=== PATIENT | female | born 1990 | race Caucasian/White ===

== ENCOUNTER → 2021-07-03 10:25 | Outpatient (CLI) | payer OTHER, MEDICAID, SELFPAY ==
--- NOTE | 2021-07-03 10:27 | DI.US.S_ITS ---
PROCEDURE: US OB <= 14 WEEKS FETUS INDICATIONS: DATING ULTRASOUND. HISTORY OF ECTOPIC - RULE OUT ECTOPIC. OUTSIDE/PRIOR DATING DATA: Last menstrual period (LMP): May 13, 2021 LMP-based estimated date of delivery (XIAO): February 17, 2022 First dating scan (date and location): July 03, 2021 Estimated date of delivery (XIAO) from first dating scan: February 19, 2022 TECHNIQUE: Real-time scanning was performed of the fetus and maternal pelvic organs, with image documentation. Endovaginal scanning was also performed to better visualize the fetus and maternal ovaries. COMPARISON: None. FINDINGS: Embryo: Single living intrauterine identified. Yolk sac and pole are identified. [place]-rump length measures 1.0 centimeters corresponding to ultrasound estimated gestational age of 7 weeks 0 days. Heart rate: 135 beats per minute Measurement variability in dating: +/- 4 weeks by LMP, +/- 7 days by mean sac diameter (use before 6 weeks gestation if crown-rump length not able to be measured), +/- 5 days by crown-rump length (up to 8 weeks 6 days gestation), +/- 7 days by crown-rump length (up to 13 weeks 6 days gestation). Maternal organs: 2.7 x 2.6 x 2.2 centimeter left corpus luteal cyst. Right adnexa is sonographically normal.. IMPRESSION: Single living intrauterine with ultrasound estimated gestational age of 7 weeks 0 days corresponding to ultrasound XIAO of February 19, 2022. Dictated by: Beulah Espinoza MD, PhD on 07/03/2021 at 14:32 Approved by: Beulah Espinoza MD, PhD on 07/03/2021 at 14:34
[2021-07-03 12:47] LABS: HCG Quantitative /Beta subunit 42375 mIU/mL
== END ==
PROVIDERS: PCP Nurse Practitioner; Referring Provider Obstetrics & Gynecology; Visit Provider Obstetrics & Gynecology
DX: Z36.87 Encounter for antenatal screening for uncertain dates (principal); O34.81 Maternal care for other abnormalities of pelvic organs, first trimester; N83.12 Corpus luteum cyst of left ovary; Z3A.01 Less than 8 weeks gestation of pregnancy
CPT/HCPCS: 36415; 76801; 76817; 84702

== ENCOUNTER → 2021-08-21 12:53 | Outpatient (CLI) | payer OTHER, MEDICAID, SELFPAY | PROVIDERS: PCP Nurse Practitioner; Referring Provider Obstetrics & Gynecology; Visit Provider Obstetrics & Gynecology | DX: Z34.91 Encounter for supervision of normal pregnancy, unspecified, first trimester (principal); Z36.0 Encounter for antenatal screening for chromosomal anomalies | CPT/HCPCS: 36415 ==

== ENCOUNTER → 2021-09-19 14:43 | Outpatient (CLI) | payer OTHER, MEDICAID, SELFPAY ==
[2021-09-19 18:55] LABS: Appearance Urine UA CLEAR; Bilirubin Urine UA NEGATIVE (NEGATIVE); Color Urine UA YELLOW; Glucose Urine UA TRACE g/dL (Negative); Ketones Urine UA NEGATIVE (NEGATIVE); Leukocyte Esterase Urine UA NEGATIVE (NEGATIVE); Nitrite Urine UA NEGATIVE (Negative); Occult Blood Urine UA NEGATIVE (Negative); Protein Urine UA NEGATIVE (Negative); Specific Gravity Urine UA 1.015 (1.000-1.035); Urobilinogen Urine UA 0.2 E.U./dL (0.2)
== END ==
PROVIDERS: PCP Nurse Practitioner; Visit Provider Obstetrics & Gynecology
DX: Z34.81 Encounter for supervision of other normal pregnancy, first trimester (principal)
CPT/HCPCS: 81003; 87086

== ENCOUNTER → 2021-09-19 15:03 | Outpatient (CLI) | payer OTHER, MEDICAID, SELFPAY ==
[2021-09-19 15:37] LABS: Add Manual Diff / Slide Review NO; Basophils Absolute Auto 100 /uL (0-100); Basophils Percent Auto 0.9 % (0-2); Eosinophils Absolute Auto 100 /uL (0-450); Eosinophils Percent Auto 1.1 % (2-4); Hematocrit 33.4 % (36-46); Lymphocytes Absolute Auto 1600 /uL (1100-4500); Lymphocytes Percent Auto 26.6 % (25-40); Mean Corpuscular Hemoglobin 26.9 PG (26-34); Mean Corpuscular Volume 81.4 fL (80-100); Monocytes Absolute Auto 500 /uL (0-900); Monocytes Percent Auto 7.6 % (3-14); Neutrophils Absolute Auto 3900 /uL (1500-7000); Neutrophils Percent Auto 63.8 % (50-75); Platelet Count 254 X10^3/uL (150-400); Red Cell Distribution Width 16.2 % (11.6-14.8); White Blood Cell Count 6.2 X10^3/uL (4.5-11.0)
[2021-09-20 05:04] LABS: RPR Screen Non Reactive (Non Reactive)
[2021-09-20 17:40] LABS: Varicella IgG Antibody 163 index (Immune >165)
[2021-09-20 19:44] LABS: Hepatitis B Surface Antigen NEGATIVE s/c (NEGATIVE); Rubella Antibody IgG 10.4 IU/mL (>15)
[2021-09-20 20:00] LABS: HIV 1 & 2 Ab/Ag 4th Gen Combo NEGATIVE (NEGATIVE); Hep C Virus Ab w/Reflex Quant NEGATIVE s/c (NEGATIVE)
[2021-09-21 18:35] LABS: Gest Age on Col Date 18.4 weeks (.); Gestational Age Ultrasound (.); Insulin Dep Diabetes No (.); OSBR Risk 1IN 10000 (.); Results Report (.); Test Results *Screen Negative* (.)
== END ==
PROVIDERS: PCP Nurse Practitioner; Referring Provider Obstetrics & Gynecology; Visit Provider Obstetrics & Gynecology
DX: O09.12 Supervision of pregnancy with history of ectopic pregnancy, second trimester (principal); Z36.0 Encounter for antenatal screening for chromosomal anomalies; Z3A.18 18 weeks gestation of pregnancy
CPT/HCPCS: 36415; 80055; 81003; 81420; 82105; 86787; 86803; 86850; 86900; 86901; 87086; 87389

== ENCOUNTER → 2021-10-02 12:02 | Outpatient (CLI) | payer OTHER, MEDICAID, SELFPAY ==
--- NOTE | 2021-10-02 12:04 | DI.US.S_ITS ---
PROCEDURE: US OB >= 14 WEEKS FETUS INDICATIONS: ANATOMY OUTSIDE/PRIOR DATING DATA: Last menstrual period (LMP): 05/13/2021. LMP-based estimated date of delivery (XIAO): 02/17/2022 . First dating scan (date and location): 07/03/2021 . Estimated date of delivery (XIAO) from first dating scan: 02/19/2022 . TECHNIQUE: Real-time scanning was performed of the fetus, with image documentation and biometric measurements. Endovaginal scanning: No COMPARISON: [facility], OB <= 14 WEEKS FETUS, 07/03/2021, 10:37. FINDINGS: General: A single living intrauterine gestation is present. Presentation: Variable. Placenta: Placental position is posterior , without previa. Amniotic fluid index: 8.6 cm, normal range is 5-24 cm. heart rate: 153 beats per minute. Maternal cervical canal: 5.5 cm long. Normal lower limit is 2.5 cm. biometrics: Biparietal diameter: 19 weeks 3 days Head circumference: 19 weeks 6 days Abdominal circumference: 20 weeks 1 day Femur length: 19 weeks 4 days Estimated gestational age from initial scan: 20 weeks Composite gestational age from present scan: 19 weeks 5 days Estimated weight and percentile: 318 g; 38th percentile. Measurement variability for biometric dating: +/- 7 days from 14 weeks to 15 weeks 6 days gestation, +/- 10 days from 16 weeks to 21 weeks 6 days gestation, +/- 2 weeks from 22 weeks to 27 weeks 6 days gestation, +/- 3 weeks for 28 weeks gestation or later. weight reference: 4500 g or EFW >90/95% is considered macrosomia or large for gestational age. EFW <10% is small for gestational age. EFW 5% or less is considered intra-uterine growth restriction. Anatomic survey: Neuro: Ventricles are non-dilated at less than 10 mm. Cisterna magna is normal at 3-11 mm. Cerebellum is normal in size and morphology. Nuchal skin fold: Normal at less than 6 mm between 14-21 weeks gestational age. Face: Nose and lips, facial profile are normal. Spine: No evidence for spina bifida. Heart: 4-chambered heart is present, with normal ventricular outflow tracts. Diaphragm: Diaphragm is intact. Stomach: Left-sided stomach is present. Kidneys: No hydronephrosis. Normal is less than 5 mm in 2nd trimester, less than 7 mm in 3rd trimester. Cord: 3-vessel cord has orthotopic insertion. Marginal placental cord insertion site roughly 17 mm from the placental margin. Bladder: Normal in size. Extremities: All 4 extremities identified. IMPRESSION: 1. Normal interval growth. 2. spine not well visualized; otherwise normal anatomic survey. 3 . Marginal cord insertion site. Attention on follow-up recommended. Dictated by: Ryan HO Interpreted: Dio Burgess MD on 10/02/2021 at 14:41 Transcribed by: ANTONIA on 10/02/2021 at 14:43 Approved by: Dio Burgess M.D. on 10/02/2021 at 18:07
== END ==
PROVIDERS: PCP Nurse Practitioner; Referring Provider Obstetrics & Gynecology; Visit Provider Obstetrics & Gynecology
DX: Z34.82 Encounter for supervision of other normal pregnancy, second trimester (principal); Z3A.19 19 weeks gestation of pregnancy
CPT/HCPCS: 76811

== ENCOUNTER → 2021-11-19 14:51 | Outpatient (CLI) | payer OTHER, MEDICAID, SELFPAY ==
[2021-11-19 16:31] LABS: Hematocrit 31.2 % (36-46); Hemoglobin 10.5 g/dL (12.0-16.0)
[2021-11-19 17:10] LABS: GTT (PREG) 1 Hour PP 50gm Dose 132 mg/dL (76-139)
== END ==
PROVIDERS: PCP Nurse Practitioner; Referring Provider Obstetrics & Gynecology; Visit Provider Obstetrics & Gynecology
DX: Z34.82 Encounter for supervision of other normal pregnancy, second trimester (principal); Z3A.25 25 weeks gestation of pregnancy
CPT/HCPCS: 36415; 82950; 85014; 85018

== ENCOUNTER → 2022-01-24 11:58 | Outpatient (CLI) | payer OTHER, MEDICAID, SELFPAY ==
[2022-01-25 08:08] LABS: Strep Grp B PCR POS for Grp B Strep
== END ==
PROVIDERS: PCP Nurse Practitioner; Visit Provider Obstetrics & Gynecology
DX: Z34.83 Encounter for supervision of other normal pregnancy, third trimester (principal); Z3A.36 36 weeks gestation of pregnancy
CPT/HCPCS: 87186; 87653

== ENCOUNTER 2022-02-15 13:02 | Outpatient (CLI) | payer OTHER, MEDICAID, SELFPAY | END 2022-02-15 14:13 | disposition home or self-care (01) | LOC: LABOR 13:25 → OB 15:43 | PROVIDERS: PCP Nurse Practitioner; Referring Provider Obstetrics & Gynecology; Visit Provider Obstetrics & Gynecology | DX: O26.23 Pregnancy care for patient with recurrent pregnancy loss, third trimester (principal); Z3A.39 39 weeks gestation of pregnancy | CPT/HCPCS: 59025; G0378; G0379 ==

== ENCOUNTER 2022-02-19 23:04 | Inpatient (IN) | payer OTHER, MEDICAID, SELFPAY ==
[2022-02-20 03:17] LABS: Add Manual Diff / Slide Review NO; Basophils Absolute Auto 100 /uL (0-100); Basophils Percent Auto 0.6 % (0-2); Eosinophils Absolute Auto 100 /uL (0-450); Eosinophils Percent Auto 1.1 % (2-4); Hematocrit 31.6 % (36-46); Hemoglobin 10.6 g/dL (12.0-16.0); Lymphocytes Absolute Auto 2700 /uL (1100-4500); Lymphocytes Percent Auto 27.2 % (25-40); Mean Corpuscular HGB Conc 33.5 % (30-36); Mean Corpuscular Hemoglobin 26.6 PG (26-34); Mean Corpuscular Volume 79.3 fL (80-100); Monocytes Absolute Auto 700 /uL (0-900); Neutrophils Absolute Auto 6300 /uL (1500-7000); Neutrophils Percent Auto 64.1 % (50-75); Platelet Count 279 X10^3/uL (150-400); Red Blood Cell Count 3.98 X10^6/uL (4.0-5.2); Red Cell Distribution Width 16.5 % (11.6-14.8); White Blood Cell Count 9.8 X10^3/uL (4.5-11.0)
[2022-02-20] MEDS: ZOLPIDEM 5 MG TABLET PO (03:54)
[2022-02-20 06:59] LABS: COVID19 -Nasal RAPID Negative (Negative)
[2022-02-20] MEDS: ACETAMINOPHEN 325 MG TABLET 650 MG PO ×3 (11:04→22:56)
[2022-02-20] MEDS: levETIRAcetam 250 MG TABLET 1000 MG PO ×2 (11:05→21:42)
--- NOTE | 2022-02-20 12:39 | P.HPOB_ITS ---
OB HPI Date/Time Date of admission: 02/19/22 Date Patient Seen: 02/20/22 Time Patient Seen: 07:30 History of Present Condition Chief complaint: Induction : 4 Para: 1 Estimated Date of Delivery: 02/17/22 Estimated Gestational Age (weeks): 40+3 Narrative: Shanae Rodriguez is a 31 year old at 40+ 3 weeks gestational age admitted for cervical ripening and induction. Patient's course has been complicated by a known seizure disorder for which she was recently hospitalized at [facility] and for which she is currently on Keppra 1000 mg p.o. b.i.d.. Her infant is small but does not meet IUGR criteria and her most recent CHERRY is normal. Patient has a history of HSV and is on acyclovir 400 mg p.o. t.i.d. for suppression. In addition the patient is GBS positive. Indications Indication for induction OB: maternal discomfort History of Present care: good care Dating criteria: LMP confirmed by 1st trimester US Ultrasounds: normal 1st trimester US and normal mid trimester US Obstetrical complications: none Medical complications: genitourinary (History HSV) and neurological (Absence seizure disorder) Preadmission Labs Blood type: O (+) positive -: Antibody screen: negative, GBS status: positive, HBsAG: negative, HIV: negative and RPR/VDLR: negative -: Chlamydia screen: not detected and Gonorrhea screen: not detected -: Rubella: not immune and Varicella: not immune HCT: 31.6 HCAB: negative PAP: Normal Quad screen: Normal 1 hr GTT: 132 Prior (ies) History: x 1 Evaluation Evaluation Baseline heart rate: 135 Variability: Moderate (11-25) monitor accelerations: Present Monitor Decelerations: Absent Category of Tracing: Reactive Status: Category l Dilation (cm): 2 Effacement (%): 50 Dilation: 1-2 cm Effacement: 40-50% station: -2 Position of cervix: posterior Consistency: soft Keenan score: 5 PFSH Medical History Anxiety Chlamydia (~2010) Ectopic (~01/2020) Epilepsy Genital herpes (~2011) Right arm fracture SAB (spontaneous ) (~05/01/13) (spontaneous vaginal delivery) (~10/05/15) UTI (urinary tract infection) Surgical History [place] teeth extracted Family History Father Myocardial infarction Hyperlipidemia Stress Mother Family estrangement Habitual drug user Addiction Grandfather Family estrangement Grandmother Family estrangement Addiction Grandfather Old age Grandmother Cancer Lung cancer COPD (chronic obstructive pulmonary disease) Heavy smoker Family/Other Addiction Brother Family estrangement Family/Other Diabetes mellitus Alzheimer's dementia Family/Other Grand mal seizure Social History marital status: unmarried,living together number of children: 1 household members: significant other and children lives independently: Yes caregiver/support person: Yes pets and animals: No occupational status: employed current occupational exposures/hazards: Yes special zoe needs: No Smoking Status: Former smoker second hand exposure: No (Win smokes outside) alcohol intake: former substance use type: does not use, marijuana and other Meds Home Medications and Allergies Home Medications Medication Instructions Recorded Confirmed Type ascorbic acid (vitamin C) 1,000 mg 500 mg PO DAILY 07/10/21 02/20/22 History tablet prenat.vits,raz,aqh-[id number] 1 tab PO DAILY 07/10/21 02/20/22 History acyclovir 400 mg tablet 400 mg PO TID #90 tab 01/24/22 02/20/22 Rx levetiracetam 500 mg tablet 1,000 mg PO Q12H #120 tab 02/08/22 02/20/22 Rx (Keppra) Allergies Allergy/AdvReac Type Severity Reaction Status Date / Time Penicillins Allergy Severe HIVES Verified 02/20/22 16:39 amoxicillin Allergy Intermediate Hives as Verified 02/20/22 16:39 an Infant OB Exam HENMT Head: normal to inspection, normocephalic and atraumatic Eyes General: appearance normal, both eyes and all related structures Resp Effort & Inspection: normal respiratory effort and able to speak in complete sen tences Auscultation: clear to auscultation bilaterally Cardio Rate: regular rate Rhythm: regular rhythm Heart Sounds: S1 normal, S2 normal and no murmurs Extremities Lower extremity: Yes normal to inspection GI Inspection: normal to inspection Palpation: Yes soft and Yes no hepatosplenomegaly External Female Exam: Yes normal external appearance Uterus Location (Fundal Height): 34 Presentation: vertex Estimated Weight (lbs): 7 Objective Labs Result Diagrams: 02/20/22 03:00 Labs: Laboratory Results - last 24 hr 02/20/22 02/20/22 02/20/22 03:00 03:00 03:00 WBC 9.8 RBC 3.98 L Hgb 10.6 L Hct 31.6 L MCV 79.3 L MCH 26.6 MCHC 33.5 RDW 16.5 H Plt Count 279 Neut % (Auto) 64.1 Lymph % (Auto) 27.2 Thomas % (Auto) 7.0 Eos % (Auto) 1.1 L Baso % (Auto) 0.6 Neut # (Auto) 6300 Lymph # (Auto) 2700 Thomas # (Auto) 700 Eos # (Auto) 100 Baso # (Auto) 100 SARS-CoV-2 (PCR) Negative Blood Type O Positive Antibody Screen Negative Assessment and Plan Assessment and Plan Assessment and Plan narrative: ASSESSMENT 1. Intrauterine gestation, Burden, 40+3 weeks EGA 2. History HSV currently on antiviral suppression therapy; no evidence of active lesions 3. GBS positive; penicillin allergic 4. SGA infant with normal CHERRY 5. Absence seizure disorder PLAN 1. Admit for ripening and induction 2. Clindamycin for GBS prophylaxis 3. Continue acyclovir t.i.d. 4. Continue Keppra 1000 mg p.o. b.i.d. 5. Anticipate , desires MARY
[2022-02-20] MEDS: miSOPROStoL 25 MCG TABLET 50 MCG PO ×2 (16:36→23:17)
[2022-02-20] MEDS: ACYCLOVIR 400 MG TABLET PO (21:41)
[2022-02-20] MEDS: LACTATED RINGERS 1,000 ML 100 ML IV (22:54)
[2022-02-21] MEDS: ZOLPIDEM 5 MG TABLET PO (00:01)
[2022-02-21] MEDS: CLINDAMYCIN 900 MG/50 ML PIGGYBACK 50 MG IV (01:53)
[2022-02-21] MEDS: LACTATED RINGERS 1,000 ML 100 ML IV (02:30)
[2022-02-21] MEDS: ONDANSETRON 4 MG/2 ML INJ IV (03:03)
--- NOTE | 2022-02-21 05:05 | PM.OBPRVD ---
Events: Other (Small for gestational age; Marginal cord insertion) Labor & Delivery Delivery date: 02/21/22 Intrapartal Events: None Cervical ripening method: per misoprostal protocol Induction method: none Delivery monitor: external FHT and external uterine Route of delivery: Episiotomy description: None L&D Laceration Description: Perineal - 1st Degree Estimated blood loss (mL): 100 Anesthesia Type: Epidural Complications: None Narrative: As result of Cytotec ripening, the patient advanced through the active phase of labor into the 2nd stage and after a brief 2nd stage delivered spontaneously over an intact perineum a viable male in the DOMINICK position with Apgars 9/9, and a weight of 2816 gms (6# 3.3 oz.). Shoulders were delivered without difficulty and a single nuchal cord was encountered which was easily reduced following delivery of the . Skin to skin contact was initiated immediately and delayed cord clamping performed. Once the umbilical cord was doubly clamped and cut, a cord blood sample was obtained for routine studies. The placenta was then delivered with very gentle cord traction and found to be intact with a marginal insertion. The perineum was inspected and 2 very small, very superficial abrasions were noted at the perineum but otherwise there were no lacerations or abrasions. No repair of the abrasions was required. At that point the delivery process was completed with the mother and both doing well. Instrument and sponge counts were both correct. Baby 1: Infant gender: Male Presentation: vertex Position: Left Occiput Anterior Placenta delivery description: Spontaneous Cord Vessel Description: Nuchal Cord score (1 min): 9 score (5 min): 9 weight: 6 lb 3.331 oz Plan for aftercare: Routine care
[2022-02-21] MEDS: IBUPROFEN 600 MG TABLET PO ×3 (06:13→20:39)
[2022-02-21] MEDS: ACETAMINOPHEN 325 MG TABLET 650 MG PO ×3 (06:14→20:39)
[2022-02-21] MEDS: PRENATAL VIT,CALC/IRON/FOLIC 1 TABLET 1 TAB PO (09:18)
[2022-02-21] MEDS: ACYCLOVIR 400 MG TABLET PO ×3 (09:18→20:39)
[2022-02-21] MEDS: levETIRAcetam 250 MG TABLET 1000 MG PO ×2 (09:19→20:40)
[2022-02-21] MEDS: DOCUSATE 100 MG CAPSULE PO ×2 (09:19→20:40)
[2022-02-22] MEDS: ACETAMINOPHEN 325 MG TABLET 650 MG PO ×2 (03:09→09:53)
[2022-02-22] MEDS: IBUPROFEN 600 MG TABLET PO ×2 (03:09→09:52)
[2022-02-22 06:29] LABS: Hematocrit 29.9 % (36-46)
[2022-02-22] MEDS: ACYCLOVIR 400 MG TABLET PO (09:20)
[2022-02-22] MEDS: LANOLIN OINT 7 GM 1 APPLIC TOP (09:20)
[2022-02-22 09:52] VITALS: TEMP 36.9
[2022-02-22 09:53] VITALS: TEMP 36.9
[2022-02-22] MEDS: levETIRAcetam 250 MG TABLET 1000 MG PO (10:07)
--- NOTE | 2022-02-22 10:13 | PM.DS.1 ---
History of Present Illness History of Present Illness Date Patient Seen: 02/22/22 Time Patient Seen: 10:00 Chief complaint: Induction & Delivery Narrative: Shanae Rodriguez is a 31 year old at 40+ 2 weeks gestational age admitted for cervical ripening and induction on the evening of 02/19/2022.? Patient's course has been complicated by a known seizure disorder for which she was recently hospitalized at [facility] and for which she is currently on Keppra 1000 mg p.o. b.i.d..? Her infant is small but does not meet IUGR criteria and her most recent CHERRY is normal.? Patient has a history of HSV and is on acyclovir 400 mg p.o. t.i.d. for suppression.? In addition the patient is GBS positive. Discharge Providers Provider Date of admission: 02/19/22 23:04 Discharge Date: 02/22/22 Primary care physician: PATSY Ambrosio Consults: 02/19/22 23:08 Consult to Anesthesiology Urgent Comment: Consulting Provider: Tru Carver Reason for consultation: MARY placement in labor Has provider been notified: No 02/21/22 05:27 Consult to WAIT STAFF - Metallographic Technician Routine Comment: 02/22/22 05:03 Consult to Phlebotomy Services Representative Routine Comment: Discharge provider: Tru Carver MD Summary Hospital Course Hospital Course: As result of Cytotec ripening, the patient advanced through the active phase of labor into the 2nd stage and after a brief 2nd stage delivered spontaneously over an intact perineum a viable male in the DOMINICK position with Apgars 9/9, and a weight of 2816 gms (6# 3.3 oz.) on the morning of 02/21/2022. Following delivery both mother and baby have done extremely well with the mother experiencing prompt return of bowel and bladder function, she is ambulating independently, tolerating regular diet, and her pain is well controlled with oral medications. She will be discharged at this time in an afebrile normotensive condition to home following counseling regarding precautionary symptoms, limitations of activity, medications, and plans for follow-up which will be in 6 weeks . Status at Discharge Cognitive/behavioral status at discharge: oriented Functional status at discharge: independent ambulation Overall status at discharge: patient is progressing back to baseline Time Spent with Patient Time spent: Less than 30 minutes Exam Vital Signs (past 8 hours): - 03/25/22 09:52 02/22/22 09:53 Temperature 98.4 F 98.4 F Const General: cooperative and comfortable Nutritional Appearance: average body habitus Orientation: alert and oriented x3 HENMT Head: normal to inspection Ears: hearing grossly normal bilaterally Face and sinus: face symmetric Eyes General: appearance normal, both eyes and all related structures Neck Neck: normal visual inspection Resp Effort & Inspection: normal respiratory effort and able to speak in complete sentences Auscultation: clear to auscultation bilaterally Cardio Rate: regular rate Rhythm: regular rhythm Heart Sounds: S1 normal, S2 normal and no murmurs GI Inspection: normal to inspection Palpation: soft, no hepatosplenomegaly and mass (Firm, nontender, U -4) Auscultation: normal bowel sounds External Female Exam: other (Perineum intact) Extrem General: no calf tenderness Psych Appearance: grossly normal Mental Status: mental status grossly normal Speech and Movement: speech and movement normal Mood: congruent mood Affect: normal affect Attitude: cooperative Thought Process: normal Thought Content: normal Judgment: judgment good Objective Labs Result Diagrams: 02/22/22 06:05 Labs: Laboratory Results - last 24 hr 02/22/22 06:05 Hgb 10.0 L Hct 29.9 L PFSH Medical History Anxiety Chlamydia (~2010) Ectopic (~01/2020) Epilepsy Genital herpes (~2011) Right arm fracture SAB (spontaneous ) (~05/01/13) (spontaneous vaginal delivery) (~10/05/15) UTI (urinary tract infection) Surgical History [place] teeth extracted Family History Father Myocardial infarction Hyperlipidemia Stress Mother Family estrangement Habitual drug user Addiction Grandfather Family estrangement Grandmother Family estrangement Addiction Grandfather Old age Grandmother Cancer Lung cancer COPD (chronic obstructive pulmonary disease) Heavy smoker Family/Other Addiction Brother Family estrangement Family/Other Diabetes mellitus Alzheimer's dementia Family/Other Grand mal seizure Social History marital status: unmarried,living together number of children: 1 household members: significant other and children lives independently: Yes caregiver/support person: Yes pets and animals: No occupational status: employed current occupational exposures/hazards: Yes special zoe needs: No Smoking Status: Former smoker second hand exposure: No (Win smokes outside) alcohol intake: former substance use type: does not use, marijuana and other Discharge Assessment & Plan Assessment and Plan Assessment: Intrauterine gestation, Burden, 40+ 3 weeks gestational age, delivered Status post spontaneous vaginal delivery Plan of Treatment: Routine care and follow-up in 6 weeks or as needed. Discharge Plan Discharge Plan Patient Disposition: Home Provider Discharge Comment: Please review the written instructions he received when your discharge from the hospital. Your follow-up appointment will be scheduled in 6 weeks and I look forward to seeing you then. If in the meanwhile however you have any issues, concerns, or problems, please feel free to contact me through the office phone number or via the patient portal. Discharge orders & Medications Prescriptions: New ibuprofen 600 mg Tablet 600 mg PO Q6HR PRN (Reason: Pain, Mild (1-3)) Qty: 60 1RF Continued levetiracetam [Keppra] 500 mg tablet 1,000 mg PO Q12H Qty: 120 12RF prenat.vits,raz,[id number] Tablet 1 tab PO DAILY 0RF ascorbic acid (vitamin C) 1,000 mg tablet 500 mg PO DAILY 0RF Discontinued acyclovir 400 mg tablet 400 mg PO TID Qty: 90 3RF Follow up/Referrals: Delilah Alejandro ARNP [Primary Care Provider] - Tru Carver MD [Physician] - 6 Weeks (Please follow up with Dr. Carver on Friday at 1330 with a 1315 check in time. If you have any questions/concerns please call ) Diet/Activity/Treatments Diet: Diet as Tolerated Activity: As tolerated Other treatments: Tylenol may be taken in addition to the prescribed ibuprofen Skin/Wound/Dressing Care Report to your healthcare provider any signs of infection, such as:: chills, fever, increased pain, unusual drainage and unusual redness Dressing: N/A Visit Report/Discharge Packet Instructions: DI for Labor and Delivery, Vaginal , DI for and Nipple Soreness Stand Alone Forms: Discharge: Care Discharge Data Primary Care Provider: Delilah Alejandro
[2022-02-22 10:58] VITALS: BP 126/90; PULSE 66; RESP 18; TEMP 36.9
== END 2022-02-22 13:35 | disposition home or self-care (01) | DRG 560 ==
PROVIDERS: Admitting Provider Obstetrics & Gynecology; PCP Nurse Practitioner; Referring Provider Obstetrics & Gynecology; Visit Provider Obstetrics & Gynecology
DX: O48.0 Post-term pregnancy (principal); Z20.822 Contact with and (suspected) exposure to COVID-19; Z3A.40 40 weeks gestation of pregnancy; Z37.0 Single live birth; O98.52 Other viral diseases complicating childbirth; B00.9 Herpesviral infection, unspecified; O99.354 Diseases of the nervous system complicating childbirth; O99.824 Streptococcus B carrier state complicating childbirth; O70.0 First degree perineal laceration during delivery; O69.81X0 Labor and delivery complicated by cord around neck, without compression, not applicable or unspecified
CPT/HCPCS: 01967; 36415; 59050; 59200; 59409; 85014; 85018; 85025; 86850; 86900; 86901; 87635; C9803; G0379; J2405; J3010